=== PATIENT | male | born 1965 | race Caucasian/White ===

== ENCOUNTER 2016-07-02 20:27 | Emergency (ER) | payer BC, OTHER ==
[2016-07-02] MEDS ORDERED: CEPHALEXIN 250 MG CAP As Ordered ONE (21:10)
--- NOTE | 2016-07-02 21:25 | EDDOCDS ---
Physician Documentation [facility] Name: Ted Jarrell Age: 50 yrs Sex: Male : 1965 Arrival Date: 07/02/2016 Time: 20:27 Bed TR8 Private MD: Ananda Avila Disposition: 07/02/16 21:14 Discharged to Home/Self Care. Impression: Insect bite (nonvenomous), unspecified lower leg - BILATERAL, Insect bite (nonvenomous) of upper arm - BILATERAL, Cellulitis of left upper limb - LEFT. - Condition is Stable. - Discharge Instructions: Insect Bite, Cellulitis. - Prescriptions for Keflex 500 mg Oral Capsule - take 1 capsule by ORAL route every 6 hours for 10 days; 40 capsule. - Medication Reconciliation, Local Pharmacy Hours form. - Follow up: Ananda Avila; When: 2 - 3 days; Reason: Recheck today's complaints, Continuance of care. - Problem is new. - Symptoms have improved. - Notes: USE MEDICATION INSTRUCTED, FOLLOW UP WITH YOUR DOCTOR IN 2-3 DAYS, RETURN TO THE ER IF THE SYMPTOMS WORSEN OR BECOME CONCERNING Historical: - Allergies: no known allergies; - Home Meds: 1. none - PMHx: none; - PSHx: left leg surgery; rigth wrist surgery; - Immunization history:: Last tetanus immunization: up to date. - Family history: Not pertinent. - Social history: Smoking status: Patient states was never smoker of tobacco. Patient/guardian denies using alcohol, street drugs, No barriers to communication noted, The patient speaks fluent Sinhala, Speaks appropriately for age. - : The pt / caregiver states he / she is not on anticoagulants. Home medication list is obtained from the patient. - Exposure Risk Screening:: None identified. Vital Signs: 07/02 20:29 BP 137 / 83; Pulse 88; Resp 18; Temp 97.8; Pulse Ox 97% ; Weight 103.42 kg / 228 lbs; elp Height 5 ft. 6 in. (167.64 cm); 20:29 Body Mass Index 36.80 (103.42 kg, 167.64 cm) elp MDM: 21:05 Cephalexin 500 mg PO once ordered. ck7 21:20 Financial registration complete. zo Administered Medications: 21:11 Drug: Cephalexin 500 mg [cephalexin 250 mg capsule (2 caps)] Route: PO; rs3 Signatures: Yaa Sanders Rosemary,RN RN rs3 Morgan Vo, LOPEZC RPA-Cck7 Lauren Menjivar RN RN ttb MTDD
--- NOTE | 2016-07-02 21:25 | EDDOCDS ---
Nurse's Notes [facility] Name: Ted Jarrell Age: 50 yrs Sex: Male : 1965 Arrival Date: 07/02/2016 Time: 20:27 Bed TR8 Private MD: Ananda Avila Diagnosis: Insect bite (nonvenomous), unspecified lower leg-BILATERAL;Insect bite (nonvenomous) of upper arm-BILATERAL;Cellulitis of left upper limb-LEFT Presentation: 07/02 20:41 Presenting complaint: Patient states: "bites" to left upper arm since this morning. ttb Adult Sepsis Screening: The patient does not have new or worsening altered mentation. Patient's respiratory rate is less than 22. Systolic blood pressure is greater than 100. Patient has a qSOFA score of 0- Negative Sepsis Screen. Suicide/Homicide risk assessment- the patient denies having any suicidal and/or homicidal ideations and does not present with any other emotional, behavioral or mental health complaints. Status: Patient is not a septic tank service technician or dependent. Transition of care: patient was not received from another setting of care. 20:41 Acuity: KATHY Level 5 ttb 20:41 Method Of Arrival: Walkin/Carried/Asstd ttb Triage Assessment: 20:42 Bite Description: Bite sustained to left upper arm, legs by an insect Animal ttb Information: not applicable. General: Appears in no apparent distress, well nourished, Behavior is appropriate for age, cooperative, pleasant. Pain: Location: left upper arm "adams". HIV screening NA for this visit Offered previously. Neurological: Level of Consciousness is awake, alert. Respiratory: No deficits noted. Derm: Skin is normal, rash noted to left upper arm, bilat legs. Injury Description: No known injury. 21:24 Bite Description: Animal Information: Vaccine status: is not applicable. rs3 Historical: - Allergies: no known allergies; - Home Meds: 1. none - PMHx: none; - PSHx: left leg surgery; rigth wrist surgery; - Immunization history:: Last tetanus immunization: up to date. - Family history: Not pertinent. - Social history: Smoking status: Patient states was never smoker of tobacco. Patient/guardian denies using alcohol, street drugs, No barriers to communication noted, The patient speaks fluent Vincentian, Speaks appropriately for age. - : The pt / caregiver states he / she is not on anticoagulants. Home medication list is obtained from the patient. - Exposure Risk Screening:: None identified. Screenin:20 Screening information is obtained from the patient. Fall risk: No risks identified. rs3 Assistance ADL's: requires no assistance with activities of daily living. Abuse/DV Screen: The patient / caregiver reports he/she is: not in a situation that causes fear, pain or injury. Nutritional screening: No deficits noted. Advance Directives: Currently, there is no health care proxy. home support is adequate. Assessment: 21:21 General: Appears in no apparent distress, Behavior is appropriate for age, cooperative. rs3 Respiratory: Airway is patent Respiratory effort is even, unlabored. Derm: Skin insect bite multiple insect cornejo clustered in left upper arm. Vital Signs: 20:29 BP 137 / 83; Pulse 88; Resp 18; Temp 97.8; Pulse Ox 97% ; Weight 103.42 kg; Height 5 elp ft. 6 in. (167.64 cm); 20:29 Body Mass Index 36.80 (103.42 kg, 167.64 cm) [facility] Vitals: 20:29 Log In Time: July 02, 2016 at 20:27. [facility] ED Course: 20:28 Patient visited by Lacy Julian PCA. elp 20:28 NO PRIMARY PHYSICIAN, . is Private Physician. elp 20:28 Ananda Avila is Private Physician. elp 20:28 Patient moved to Waiting elp 20:29 Patient visited by Lacy Julian PCA. elp 20:29 Patient moved to Pre RCE elp 20:41 Triage Initiated ttb 20:47 Patient moved to Triage 2 jp4 21:01 [facility]C [facility]. ck7 21:01 Roger Del Castillo DO is Attending Physician. ck7 21:01 Patient visited by Morgan Vo RPA-C. ck7 21:13 Ananda Avila is Referral Physician. ck7 21:17 Patient moved to TR8 rs3 21:23 No IV's were initiated during this patient's visit. No procedures done that require rs3 assistance. 21:24 The patient / caregiver is instructed regarding the plan of care and ED course. rs3 Administered Medications: 21:11 Drug: Cephalexin 500 mg [cephalexin 250 mg capsule (2 caps)] Route: PO; rs3 Order Results: There are currently no results for this order. Outcome: 21:14 Discharge ordered by Provider. ck7 21:24 Discharge Assessment: patient administered narcotics - no. The following High Risk rs3 Discharge criteria are identified: None. Discharged to home with family. Condition: stable. Discharge instructions given to patient, Instructed on discharge instructions, follow up and referral plans. medication usage, Demonstrated understanding of instructions, medications, Pt was receptive of discharge instructions/ teaching. Prescriptions given X 1. No special radiology studies were completed. Property :Personal belongings accompany Pt. 21:24 Patient left the ED. rs3 Signatures: Michelle Pandey,RN RN rs3 Morgan Vo, GRETCHEN-C RPA-Cck7 Lauren Menjivar RN RN sveta Julian, Lacy, ANNUAL GIVING DIRECTOR ANNUAL GIVING DIRECTOR elp Pignone, Jairo jp4 SAMD
--- NOTE | 2016-07-04 22:26 | EDDOCDS ---
Physician Documentation [facility] Name: Ted Jarrell Age: 50 yrs Sex: Male : 1965 Arrival Date: 07/02/2016 Time: 20:27 Bed TR8 Private MD: Ananda Avila Disposition: 07/02/16 21:14 Discharged to Home/Self Care. Impression: Insect bite (nonvenomous), unspecified lower leg - BILATERAL, Insect bite (nonvenomous) of upper arm - BILATERAL, Cellulitis of left upper limb - LEFT. - Condition is Stable. - Discharge Instructions: Insect Bite, Cellulitis. - Prescriptions for Keflex 500 mg Oral Capsule - take 1 capsule by ORAL route every 6 hours for 10 days; 40 capsule. - Medication Reconciliation, Local Pharmacy Hours form. - Follow up: Ananda Avila; When: 2 - 3 days; Reason: Recheck today's complaints, Continuance of care. - Problem is new. - Symptoms have improved. - Notes: USE MEDICATION INSTRUCTED, FOLLOW UP WITH YOUR DOCTOR IN 2-3 DAYS, RETURN TO THE ER IF THE SYMPTOMS WORSEN OR BECOME CONCERNING Historical: - Allergies: no known allergies; - Home Meds: 1. none - PMHx: none; - PSHx: left leg surgery; rigth wrist surgery; - Immunization history:: Last tetanus immunization: up to date. - Family history: Not pertinent. - Social history: Smoking status: Patient states was never smoker of tobacco. Patient/guardian denies using alcohol, street drugs, No barriers to communication noted, The patient speaks fluent Latvian, Speaks appropriately for age. - : The pt / caregiver states he / she is not on anticoagulants. Home medication list is obtained from the patient. - Exposure Risk Screening:: None identified. Vital Signs: 07/02 20:29 BP 137 / 83; Pulse 88; Resp 18; Temp 97.8; Pulse Ox 97% ; Weight 103.42 kg / 228 lbs; elp Height 5 ft. 6 in. (167.64 cm); 20:29 Body Mass Index 36.80 (103.42 kg, 167.64 cm) elp MDM: 21:05 Cephalexin 500 mg PO once ordered. ck7 21:20 Financial registration complete. zo 21:55 [facility] Payment Agreement was scanned into [employer] and attached to record. zo 07/03 19:10 T-Sheet-- Draft Copy was scanned into [employer] and attached to record. selvinr Administered Medications: 07/02 21:11 Drug: Cephalexin 500 mg [cephalexin 250 mg capsule (2 caps)] Route: PO; rs3 Signatures: Yaa Sanders Rosemary, RN RN rs3 Morgan Vo, LOPEZC RPA-Cck7 Lauren Menjivar RN RN ttb Redder, Kathie klr The chart was reviewed and I authenticate all verbal orders and agree with the evaluation and treatment provided.Attachments: 21:55 [facility] Payment Agreement zo 07/03 19:10 T-Sheet-- Draft Copy klr Chart Complete MTDD
--- NOTE | 2016-07-04 22:26 | EDDOCDS ---
Nurse's Notes [facility] Name: Ted Jarrell Age: 50 yrs Sex: Male : 1965 Arrival Date: 07/02/2016 Time: 20:27 Bed TR8 Private MD: Ananda Avila Diagnosis: Insect bite (nonvenomous), unspecified lower leg-BILATERAL;Insect bite (nonvenomous) of upper arm-BILATERAL;Cellulitis of left upper limb-LEFT Presentation: 07/02 20:41 Presenting complaint: Patient states: "bites" to left upper arm since this morning. ttb Adult Sepsis Screening: The patient does not have new or worsening altered mentation. Patient's respiratory rate is less than 22. Systolic blood pressure is greater than 100. Patient has a qSOFA score of 0- Negative Sepsis Screen. Suicide/Homicide risk assessment- the patient denies having any suicidal and/or homicidal ideations and does not present with any other emotional, behavioral or mental health complaints. Status: Patient is not a student support services director or dependent. Transition of care: patient was not received from another setting of care. 20:41 Acuity: KATHY Level 5 ttb 20:41 Method Of Arrival: Walkin/Carried/Asstd ttb Triage Assessment: 20:42 Bite Description: Bite sustained to left upper arm, legs by an insect Animal ttb Information: not applicable. General: Appears in no apparent distress, well nourished, Behavior is appropriate for age, cooperative, pleasant. Pain: Location: left upper arm "adams". HIV screening NA for this visit Offered previously. Neurological: Level of Consciousness is awake, alert. Respiratory: No deficits noted. Derm: Skin is normal, rash noted to left upper arm, bilat legs. Injury Description: No known injury. 21:24 Bite Description: Animal Information: Vaccine status: is not applicable. rs3 Historical: - Allergies: no known allergies; - Home Meds: 1. none - PMHx: none; - PSHx: left leg surgery; rigth wrist surgery; - Immunization history:: Last tetanus immunization: up to date. - Family history: Not pertinent. - Social history: Smoking status: Patient states was never smoker of tobacco. Patient/guardian denies using alcohol, street drugs, No barriers to communication noted, The patient speaks fluent Icelandic, Speaks appropriately for age. - : The pt / caregiver states he / she is not on anticoagulants. Home medication list is obtained from the patient. - Exposure Risk Screening:: None identified. Screenin:20 Screening information is obtained from the patient. Fall risk: No risks identified. rs3 Assistance ADL's: requires no assistance with activities of daily living. Abuse/DV Screen: The patient / caregiver reports he/she is: not in a situation that causes fear, pain or injury. Nutritional screening: No deficits noted. Advance Directives: Currently, there is no health care proxy. home support is adequate. Assessment: 21:21 General: Appears in no apparent distress, Behavior is appropriate for age, cooperative. rs3 Respiratory: Airway is patent Respiratory effort is even, unlabored. Derm: Skin insect bite multiple insect cornejo clustered in left upper arm. Vital Signs: 20:29 BP 137 / 83; Pulse 88; Resp 18; Temp 97.8; Pulse Ox 97% ; Weight 103.42 kg; Height 5 elp ft. 6 in. (167.64 cm); 20:29 Body Mass Index 36.80 (103.42 kg, 167.64 cm) [facility] Vitals: 20:29 Log In Time: July 02, 2016 at 20:27. [facility] ED Course: 20:28 Patient visited by Lacy Julian PCA. elp 20:28 NO PRIMARY PHYSICIAN, . is Private Physician. elp 20:28 Ananda Avila is Private Physician. elp 20:28 Patient moved to Waiting elp 20:29 Patient visited by Lacy Julian PCA. elp 20:29 Patient moved to Pre RCE elp 20:41 Triage Initiated ttb 20:47 Patient moved to Triage 2 jp4 21:01 [facility]C [facility] ck[facility] 21:01 Roger Del Castillo DO is Attending Physician. ck7 21:01 Patient visited by Morgan Vo RPA-C. ck7 21:13 Ananda Avila is Referral Physician. ck7 21:17 Patient moved to TR8 rs3 21:23 No IV's were initiated during this patient's visit. No procedures done that require rs3 assistance. 21:24 The patient / caregiver is instructed regarding the plan of care and ED course. rs3 21:54 Patient name changed from Edward\\S\\\\S\\Hirch\\S\\ to Edward\\S\\ \\S\\Hirch. EDMS 21:55 [facility] was scanned into [employer] and attached to record. luke 07/03 19:10 T-Sheet-- Draft Copy was scanned into [employer] and attached to record. klr Administered Medications: 07/02 21:11 Drug: Cephalexin 500 mg [cephalexin 250 mg capsule (2 caps)] Route: PO; rs3 Order Results: There are currently no results for this order. Outcome: 21:14 Discharge ordered by Provider. ck7 21:24 Discharge Assessment: patient administered narcotics - no. The following High Risk rs3 Discharge criteria are identified: None. Discharged to home with family. Condition: stable. Discharge instructions given to patient, Instructed on discharge instructions, follow up and referral plans. medication usage, Demonstrated understanding of instructions, medications, Pt was receptive of discharge instructions/ teaching. Prescriptions given X 1. No special radiology studies were completed. Property :Personal belongings accompany Pt. 21:24 Patient left the ED. rs3 Signatures: Dispatcher [employer] EDMS Yaa Sanders Rosemary,RN RN rs3 Morgan Vo, RPA-C RPA-Cck7 Lauren Menjivar RN RN ttb Lacy Julian, SHAYY TAP OUT OPERATOR elp Shannon, Jairo jp4 Megan Vergara Chart Complete MTDD
--- NOTE | 2016-07-04 22:26 | EDDOCDS ---
Physician Documentation [facility] Name: Ted Jarrell Age: 50 yrs Sex: Male : 1965 Arrival Date: 07/02/2016 Time: 20:27 Bed TR8 Private MD: Ananda Avila Disposition: 07/02/16 21:14 Discharged to Home/Self Care. Impression: Insect bite (nonvenomous), unspecified lower leg - BILATERAL, Insect bite (nonvenomous) of upper arm - BILATERAL, Cellulitis of left upper limb - LEFT. - Condition is Stable. - Discharge Instructions: Insect Bite, Cellulitis. - Prescriptions for Keflex 500 mg Oral Capsule - take 1 capsule by ORAL route every 6 hours for 10 days; 40 capsule. - Medication Reconciliation, Local Pharmacy Hours form. - Follow up: Ananda Avila; When: 2 - 3 days; Reason: Recheck today's complaints, Continuance of care. - Problem is new. - Symptoms have improved. - Notes: USE MEDICATION INSTRUCTED, FOLLOW UP WITH YOUR DOCTOR IN 2-3 DAYS, RETURN TO THE ER IF THE SYMPTOMS WORSEN OR BECOME CONCERNING Historical: - Allergies: no known allergies; - Home Meds: 1. none - PMHx: none; - PSHx: left leg surgery; rigth wrist surgery; - Immunization history:: Last tetanus immunization: up to date. - Family history: Not pertinent. - Social history: Smoking status: Patient states was never smoker of tobacco. Patient/guardian denies using alcohol, street drugs, No barriers to communication noted, The patient speaks fluent Maori, Speaks appropriately for age. - : The pt / caregiver states he / she is not on anticoagulants. Home medication list is obtained from the patient. - Exposure Risk Screening:: None identified. Vital Signs: 07/02 20:29 BP 137 / 83; Pulse 88; Resp 18; Temp 97.8; Pulse Ox 97% ; Weight 103.42 kg / 228 lbs; elp Height 5 ft. 6 in. (167.64 cm); 20:29 Body Mass Index 36.80 (103.42 kg, 167.64 cm) elp MDM: 21:05 Cephalexin 500 mg PO once ordered. ck7 21:20 Financial registration complete. zo 21:55 [facility] Payment Agreement was scanned into [employer] and attached to record. zo 07/03 19:10 T-Sheet-- Draft Copy was scanned into [employer] and attached to record. selvinr Administered Medications: 07/02 21:11 Drug: Cephalexin 500 mg [cephalexin 250 mg capsule (2 caps)] Route: PO; rs3 Signatures: Yaa Sanders Rosemary, RN RN rs3 Morgan Vo, LOPEZC RPA-Cck7 Lauren Menjivar RN RN ttb Redder, Kathie klr The chart was reviewed and I authenticate all verbal orders and agree with the evaluation and treatment provided.Attachments: 21:55 [facility] Payment Agreement zo 07/03 19:10 T-Sheet-- Draft Copy klr Chart Complete MTDD
== END 2016-07-02 21:24 | disposition home or self-care (01) ==
LOC: M ED 20:27
DX: S40.862A Insect bite (nonvenomous) of left upper arm, initial encounter (principal); X58.XXXA Exposure to other specified factors, initial encounter; Y92.89 Other specified places as the place of occurrence of the external cause; Y93.89 Activity, other specified; Y99.8 Other external cause status

== ENCOUNTER → 2017-05-09 | Outpatient (REF) | payer BC ==
[2017-05-09 13:36] LABS: BASO % 0.6 % (0.0-1.0); EOS # 0.2 10^3/uL (0.0-0.50); EOS % 2.3 % (0.0-3.0); IMMATURE GRANULOCYTE % 0.2 % (0-0); LYMPH # 1.6 10^3/uL (1.5-4.5); LYMPH % 25.4 % (24.0-44.0); MEAN CORPUSCULAR HEMOGLOBIN 32.7 pg (27.0-33.0); MEAN CORPUSCULAR HGB CONC 35.2 g/dl (32.0-36.5); MEAN CORPUSCULAR VOLUME 92.7 fl (80.0-96.0); MONO # 0.6 10^3/uL (0.0-0.8); MONO % 9.2 % (0.0-5.0); NEUTROPHILS % 62.3 % (36.0-66.0); PLATELET COUNT, AUTOMATED 283 10^3/uL (150-450); RED CELL DISTRIBUTION WIDTH 11.9 % (11.5-14.5); WHITE BLOOD COUNT 6.4 10^3/uL (4.0-10.0)
[2017-05-09 13:56] LABS: VITAMIN B12 LEVEL 596 PG/ML (247-911)
[2017-05-09 14:32] LABS: ALBUMIN 3.8 GM/DL (3.2-5.2); ALBUMIN/GLOBULIN RATIO 0.86 (1.00-1.93); ALKALINE PHOSPHATASE 73 U/L (45-117); ALT/SGPT 48 U/L (12-78); ANION GAP 7 MEQ/L (8-16); AST/SGOT 36 U/L (7-37); BILIRUBIN,TOTAL 0.8 MG/DL (0.2-1.0); BLOOD UREA NITROGEN 11 MG/DL (7-18); CALCIUM LEVEL 8.9 MG/DL (8.5-10.1); CARBON DIOXIDE LEVEL 27 MEQ/L (21-32); CHLORIDE LEVEL 107 MEQ/L (98-107); CHOLESTEROL LEVEL 200 MG/DL (<200); CREATININE FOR GFR 0.82 MG/DL (0.70-1.30); FREE T4 1.06 NG/DL (0.76-1.46); GLOMERULAR FILTRATION RATE > 60.0 (>56); GLUCOSE, FASTING 100 MG/DL (70-105); POTASSIUM SERUM 4.4 MEQ/L (3.5-5.1); SODIUM LEVEL 141 MEQ/L (136-145); TOTAL PROTEIN 8.2 GM/DL (6.4-8.2); TRIGLYCERIDES LEVEL 149 MG/DL (<150)
== END ==
LOC: M LAB REF 13:23
PROVIDERS: ATTEND Family Medicine
DX: Z00.00 Encounter for general adult medical examination without abnormal findings (principal)

== ENCOUNTER 2018-05-15 19:56 | Emergency (ER) | payer BC ==
[~2018-05-15] VITALS: Ht 157.5 cm; Wt 111.4 kg
[2018-05-15] MEDS ORDERED: VITA100067 PO (20:09)
[2018-05-15] MEDS ORDERED: ZYRT10CA PO (20:09)
[2018-05-15] MEDS ORDERED: ACETAMINOPHEN 325 MG TAB PO ONE (22:00)
[2018-05-15 22:14] VITALS: BP 130/62
--- NOTE | 2018-05-16 07:46 | REP ---
Clinical: Pain and swelling with recent fall. Technique: AP, lateral, bilateral oblique. Findings: [place] view was obtained but nondiagnostic due to technical factors. Generalized age-related degenerative changes are appreciated. No obvious acute fracture dislocation. No effusion. Anterior swelling suggested on lateral radiograph. Impression: Generalized age-related changes. No obvious acute fracture or dislocation. Electronically Signed by Michael Charles MD 05/16/2018 07:37 A
== END 2018-05-15 22:16 | disposition home or self-care (01) ==
LOC: M ED 19:56
DX: S83.91XA Sprain of unspecified site of right knee, initial encounter (principal); W19.XXXA Unspecified fall, initial encounter; M17.11 Unilateral primary osteoarthritis, right knee; Y92.098 Other place in other non-institutional residence as the place of occurrence of the external cause; J30.2 Other seasonal allergic rhinitis; Z88.8 Allergy status to other drugs, medicaments and biological substances; Z79.899 Other long term (current) drug therapy

== ENCOUNTER 2018-05-18 15:52 | Emergency (ER) | payer BC ==
[~2018-05-18] VITALS: Ht 165.1 cm; Wt 109.1 kg
[~2018-05-18 15:52] MED LIST: VITA100067 PO; ZYRT10CA PO
[2018-05-18 17:14] LABS: BASO % 0.4 % (0.0-1.0); EOS % 0.3 % (0.0-3.0); HEMATOCRIT 41.2 % (42.0-52.0); HEMOGLOBIN 14.5 g/dl (13.5-17.5); LYMPH # 0.7 10^3/uL (1.5-4.5); LYMPH % 8.4 % (24.0-44.0); MEAN CORPUSCULAR HGB CONC 35.2 g/dl (32.0-36.5); MEAN CORPUSCULAR VOLUME 93.6 fl (80.0-96.0); MONO % 13.1 % (0.0-5.0); NEUTROPHILS % 77.3 % (36.0-66.0); PLATELET COUNT, AUTOMATED 185 10^3/uL (150-450); WHITE BLOOD COUNT 7.7 10^3/uL (4.0-10.0)
[2018-05-18] MEDS ORDERED: ACETAMINOPHEN 325 MG TAB PO ONE (17:15)
--- NOTE | 2018-05-18 17:43 | REP ---
Clinical: Cough . Comparison: None . Technique: PA and lateral. Findings: Mild cardiomegaly cannot be excluded. The lung casper are clear and without acute consolidation, effusion, or pneumothorax. The skeletal structures demonstrate chronic dextroconvex scoliosis. Impression: Cardiomegaly. No acute cardiopulmonary process. Electronically Signed by Michael Charles MD 05/18/2018 05:35 P
--- NOTE | 2018-05-18 17:44 | REP ---
Clinical: Trauma. Technique: Frontal view of the pelvis with neutral and frog lateral views of the right hip. Findings: Early moderate arthritic changes are appreciated including increased sclerosis of the acetabulum with joint space narrowing and marginal spurring. No definite acute fracture is appreciated. Impression: Arthritic changes. No obvious acute fracture. If the patient remains symptomatic consider noncontrast CT for more definitive evaluation. Electronically Signed by Michael Charles MD 05/18/2018 05:36 P
[2018-05-18 17:49] LABS: INFLUENZA A AMPLIFICATION POSITIVE (NEGATIVE); INFLUENZA B AMPLIFICATION NEGATIVE (NEGATIVE)
[2018-05-18 17:50] LABS: ALBUMIN 3.6 GM/DL (3.2-5.2); ALT/SGPT 60 U/L (12-78); BILIRUBIN,TOTAL 0.5 MG/DL (0.2-1.0); BLOOD UREA NITROGEN 15 MG/DL (7-18); CALCIUM LEVEL 8.8 MG/DL (8.5-10.1); CARBON DIOXIDE LEVEL 24 MEQ/L (21-32); CHLORIDE LEVEL 105 MEQ/L (98-107); CREATININE FOR GFR 0.97 MG/DL (0.70-1.30); GLOMERULAR FILTRATION RATE > 60.0 (>56); GLUCOSE, FASTING 106 MG/DL (70-100); POTASSIUM SERUM 4.1 MEQ/L (3.5-5.1); SODIUM LEVEL 137 MEQ/L (136-145); TOTAL PROTEIN 8.1 GM/DL (6.4-8.2)
[2018-05-18] MEDS ORDERED: OSEL75CA PO (17:59)
[2018-05-18 18:03] VITALS: BP 136/85
--- NOTE | 2018-05-18 18:46 | ECGEPIP ---
Stationary ECG Study [facility] - ED Test Date: 2018-05-18 Pat Name: KEKE FAJARDO Department: Room: - Gender: M Front End Assistant: shannan : 1965 Requested By: Anni Gibson Order Number: [id number] Reading MD: Karson Bailey Measurements Intervals [place] Rate: 124 P: 46 CO: 165 QRS: -58 QRSD: 109 T: 84 QT: 292 QTc: 420 Interpretive Statements SINUS TACHYCARDIA POSSIBLE LEFT ATRIAL ENLARGEMENT PATTERN CONSISTENT WITH PULMONARY DISEASE LEFT ANTERIOR FASCICULAR BLOCK LEFT VENTRICULAR HYPERTROPHY AND ST-T CHANGE NO PRIORS FOR COMPARISON Electronically Signed On 05-18-2018 18:45:46 EST by Karson Bailey
== END 2018-05-18 18:20 | disposition home or self-care (01) ==
LOC: M ED 15:52
DX: J09.X9 Influenza due to identified novel influenza A virus with other manifestations (principal); S70.01XA Contusion of right hip, initial encounter; S83.91XA Sprain of unspecified site of right knee, initial encounter; W01.0XXA Fall on same level from slipping, tripping and stumbling without subsequent striking against object, initial encounter; Y92.89 Other specified places as the place of occurrence of the external cause; Z79.899 Other long term (current) drug therapy; Z88.8 Allergy status to other drugs, medicaments and biological substances

== ENCOUNTER → 2018-06-15 | Outpatient (REF) | payer BC ==
[~2018-06-15] MED LIST changes: +OSEL75CA PO
[2018-06-15 13:35] LABS: BASO # 0.1 10^3/uL (0.0-0.2); BASO % 0.6 % (0.0-1.0); EOS # 0.2 10^3/uL (0.0-0.50); EOS % 2.2 % (0.0-3.0); HEMATOCRIT 40.9 % (42.0-52.0); LYMPH # 1.6 10^3/uL (1.5-4.5); LYMPH % 14.2 % (24.0-44.0); MEAN CORPUSCULAR HEMOGLOBIN 32.5 pg (27.0-33.0); MEAN CORPUSCULAR HGB CONC 34.2 g/dl (32.0-36.5); MEAN CORPUSCULAR VOLUME 94.9 fl (80.0-96.0); MONO % 8.8 % (0.0-5.0); NEUTROPHILS % 73.6 % (36.0-66.0); PLATELET COUNT, AUTOMATED 268 10^3/uL (150-450); RED BLOOD COUNT 4.31 10^6/uL (4.30-6.10); WHITE BLOOD COUNT 10.9 10^3/uL (4.0-10.0)
[2018-06-15 13:55] LABS: ALBUMIN 3.2 GM/DL (3.2-5.2); ALT/SGPT 36 U/L (12-78); BILIRUBIN,TOTAL 0.3 MG/DL (0.2-1.0); BLOOD UREA NITROGEN 7 MG/DL (7-18); CALCIUM LEVEL 8.8 MG/DL (8.5-10.1); CARBON DIOXIDE LEVEL 25 MEQ/L (21-32); CHLORIDE LEVEL 102 MEQ/L (98-107); CREATININE FOR GFR 0.74 MG/DL (0.70-1.30); GLOMERULAR FILTRATION RATE > 60.0 (>56); GLUCOSE, FASTING 110 MG/DL (70-100); POTASSIUM SERUM 3.9 MEQ/L (3.5-5.1); RHEUMATOID FACTOR QUANT < 10.0 IU/ML (<15.0); SODIUM LEVEL 135 MEQ/L (136-145); TOTAL PROTEIN 8.3 GM/DL (6.4-8.2)
[2018-06-15 14:03] LABS: ERYTHROCYTE SEDIMENTATION RATE 78 mm/hr (0-20)
[2018-06-15 14:11] LABS: HEMOGLOBIN A1c 5.3 %
[2018-06-15 14:24] LABS: FOLATE 18.5 NG/ML
[2018-06-18 07:45] LABS: VITAMIN B12 LEVEL 539 PG/ML (232-1245)
[2018-06-19 10:41] LABS: PTT LUPUS TYPE ANTICOAG SCREEN 1.1 (0-1.2)
[2018-06-21 18:10] LABS: ACETYLCHOLINE RCPTOR BINDING A < 0.03 nmol/L (0.00-0.24); ANTI DOUBLE STRAND-DNA AB 1 IU/mL (0-9); ANTINUCLEAR ANTIBODIES DIRECT Negative (Negative); CERULOPLASMIN 30.7 mg/dL (16.0-31.0); COPPER PLASMA 123 ug/dL (72-166); LEAD BLOOD ADULT None Detected ug/dL (0-4); Lyme Disease IgG/IgM Antibodie <0.91 ISR (0.00-0.90); Lyme Disease IgM Ab Quantitati <0.80 index (0.00-0.79); MERCURY LEVEL None Detected ug/L (0.0-14.9); SJOGREN'S ANTI SS-A <0.2 AI (0.0-0.9); SJOGREN'S ANTI SS-B <0.2 AI (0.0-0.9); STRIATIONAL ANTIBODIES Negative (Neg:<1:40); VITAMIN B1 LEVEL WHOLE BLOOD 153.1 nmol/L (66.5-200.0); VITAMIN B6,PYRIDOXAL PHOSPHATE 3.9 ug/L (5.3-46.7); VITAMIN E(ALPHA TOCOPHEROL) 9.9 mg/L (7.0-25.1); VITAMIN E(GAMMA TOCOPHEROL) 3.4 mg/L (0.5-5.5)
== END ==
LOC: M LABNEURO 09:51
PROVIDERS: ATTEND Psychiatry & Neurology Neurology
DX: G62.9 Polyneuropathy, unspecified (principal); H53.2 Diplopia; R51 Headache

== ENCOUNTER 2018-06-24 21:02 | Emergency (ER) | payer BC ==
[2018-06-24 21:12] LABS: HEMATOCRIT 45.5 % (42.0-52.0); HEMOGLOBIN 14.8 g/dl (13.5-17.5); MEAN CORPUSCULAR HEMOGLOBIN 32.6 pg (27.0-33.0); MEAN CORPUSCULAR HGB CONC 32.5 g/dl (32.0-36.5); MEAN CORPUSCULAR VOLUME 100.2 fl (80.0-96.0); PLATELET COUNT, AUTOMATED 311 10^3/uL (150-450); RED BLOOD COUNT 4.54 10^6/uL (4.30-6.10)
[2018-06-24] MEDS ORDERED: AMIODARONE 150MG/3ML INJ (J0282) As Ordered ONE (21:12)
[2018-06-24 21:14] LABS: WHITE BLOOD COUNT 15.9 10^3/uL (4.0-10.0)
[2018-06-24 21:19] LABS: VENOUS BASE EXCESS -12.9 (-2.0-2.0); VENOUS HCO3 16.9 MEQ/L (23.0-27.0); VENOUS O2 SATURATION 28.2 % (60.0-80.0); VENOUS PARTIAL PRESSURE CO2 54.3 mmHg (38.0-50.0); VENOUS PARTIAL PRESSURE O2 25.2 mmHg (30.0-50.0); VENOUS PH 7.111 UNITS (7.330-7.430); VENOUS STANDARD HCO3 13.3 MEQ/L; VENOUS TOTAL CO2 18.6 MEQ/L (24.0-28.0)
[2018-06-24 21:24] LABS: INR 1.18; PROTHROMBIN TIME 15.2 SECONDS (12.1-14.4)
[2018-06-24 21:36] LABS: EOSINOPHILS 3 % (0-5); LYMPHOCYTES 41 % (16-52); MONOCYTES 4 % (0-8); NEUTROPHILS 51 % (35-75); PLATELET ESTIMATE NORMAL (NORMAL)
[2018-06-24 21:37] VITALS: BP 139/80
[2018-06-24 21:38] LABS: CALCIUM LEVEL 9.3 MG/DL (8.5-10.1); CREATININE FOR GFR 1.39 MG/DL (0.70-1.30); GLOMERULAR FILTRATION RATE 56.9 (>56); MB/CK RELATIVE INDEX 1.7 (< OR =4); POTASSIUM SERUM 3.1 MEQ/L (3.5-5.1); TROPONIN I 0.1 NG/ML (< 0.10)
[2018-06-24] MEDS ORDERED: AMIODARONE HCL 150 MG in APPROPRIATE DILUENT 1 EA IV STA (22:15)
[2018-06-24] MEDS ORDERED: ATROPINE SULF 1MG/10ML SYRINGE (J0461) IV STA (22:15)
[2018-06-24] MEDS ORDERED: EPINEPHrine 1MG/10ML SYRINGE 1.5IN IV STA ×5 (22:15)
--- NOTE | 2018-06-25 07:12 | REP ---
Clinical: Chest pain. Comparison: 05/10/2018. Findings: Mediastinum and cardiac silhouette are stable. Lung casper demonstrate diffuse chronic appearing interstitial changes. Subtle superimposed infiltrate in the left mid lung cannot be excluded. No effusion. No pneumothorax. Skeletal structures stable. Impression: Limited by portable technique. Chronic interstitial changes. Superimposed left sided infiltrate cannot be excluded. Electronically Signed by Michael Charles MD 06/25/2018 07:04 A
--- NOTE | 2018-06-27 08:51 | ECGEPIP ---
Stationary ECG Study [facility] - ED Test Date: 2018-06-24 Pat Name: KEKE FAJARDO Department: Room: - Gender: M Procurement Professional Logistics: [facility] : 1965 Requested By: SEGUN BEAN Order Number: [id number] Reading MD: Karson Bailey Measurements Intervals [place] Rate: 131 P: AR: 0 QRS: -75 QRSD: 133 T: 70 QT: 296 QTc: 438 Interpretive Statements SINUS TACHYCARDIA WITH BORDERLINE FIRST DEGREE AV BLOCK RIGHT BUNDLE BRANCH BLOCK LEFT ANTERIOR FASCICULAR BLOCK POSSIBLE ANTERIOR MYOCARDIAL INFARCTION, OF INDETERMINATE AGE ST DEPRESSION, CONSIDER SUBENDOCARDIAL INJURY Electronically Signed On 06-27-2018 8:51:35 EST by Karson Bailey
== END 2018-06-25 02:00 | disposition expired ==
LOC: M ED 21:02
DX: J98.8 Other specified respiratory disorders (principal); I46.9 Cardiac arrest, cause unspecified; R00.0 Tachycardia, unspecified; I44.0 Atrioventricular block, first degree; I44.4 Left anterior fascicular block; I45.10 Unspecified right bundle-branch block; E66.9 Obesity, unspecified; Z88.6 Allergy status to analgesic agent
CPT/HCPCS: 31605; 36415; 71045; 80048; 82550; 82553; 82803; 83605; 84484; 85025; 85610; 92950; 93005; 93041; 96374; 96375; 99291; J0461

== ENCOUNTER → 2018-06-26 | Outpatient (REF) | LOC: M LAB 15:54 | DX: Z02.89 Encounter for other administrative examinations ==